=== PATIENT | female | born 1985 | race Caucasian/White ===

== ENCOUNTER 2018-08-10 20:04 | Emergency (ER) | payer SELFPAY ==
[2018-08-10] MEDS ORDERED: ONDANSETRON INJ 4 MG/2 ML VIAL IV ONE (20:37)
[2018-08-10] MEDS ORDERED: KETOROLAC TROMETHAMINE INJ 30 MG/ML VIAL IV ONE (20:37)
[2018-08-10] MEDS ORDERED: SODIUM CHLORIDE 0.9% 1000ML 1,000 ML IVS ONE (20:37)
--- NOTE | 2018-08-10 20:40 | ED.PDOC ---
History of Present Illness - General Chief Complaint: Abdominal Pain Stated Complaint: throwing up and abd pain Time Seen by Provider: 08/10/18 20:37 Information Source: patient Exam Limitations: no limitations - History of Present Illness Initial Comments: patient comes in today with 1 day history of nausea, vomiting, abdominal pain and epigastric area. The pain is cramping, severe, and worse with any attempt to take down by mouth intake. Patient's last by mouth intake that was successful was yesterday. She's had no diarrhea and had normal bowel movement without blood or mucus this morning. She's also had some fever, chills, cough, congestion, and body aches for the last 24 hours as well. Patient otherwise has no past medical history and takes no medications. Her past surgical history significant only for a tubal ligation. Patient has no known drug allergies. Patient does not smoke, drink, or take illicit substances. She has not received her flu shot this year Abdominal Pain Onset Location: epigastric Pain Radiation: no radiation Quality: severe Timing/Duration: 24 hours Improving Factors: nothing Worsening Factors: eating Associated Symptoms: fever/chills, nausea/vomiting Review of Systems - Review of Systems Constitutional: States: chills, fever EENTM: States: nose congestion. Denies: eye pain, ear pain, throat pain Respiratory: States: cough. Denies: short of breath, wheezing Cardiology: States: no symptoms reported Gastrointestinal/Abdominal: States: abdominal pain, nausea, vomiting. Denies: constipation, diarrhea Genitourinary: States: no symptoms reported. Denies: discharge, dysuria, hematuria Past Medical History (General) - Patient Medical History Hx Seizures: No Hx Stroke: No Hx Dementia: No Hx Asthma: No Hx of COPD: No Hx Cardiac Disorders: No Hx Congestive Heart Failure: No Hx Pacemaker: No Hx Hypertension: No Hx Thyroid Disease: No Hx Diabetes: No Hx Gastroesophageal Reflux: No Hx Renal Disease: No Hx Cancer: No Hx of HIV: No Hx Hepatitis C: No Hx MRSA: No - Vaccination History Hx Tetanus, Diphtheria Vaccination: Yes Hx Influenza Vaccination: No Hx Pneumococcal Vaccination: No Immunizations Up to Date: No - Social History Hx Tobacco Use: No Hx Alcohol Use: No Hx Substance Use: No Hx Substance Use Treatment: No Hx Depression: No Feels Threatened In Home Enviroment: No Feels Threatened In a Relationship: No Hx Physical Abuse: No Hx Emotional Abuse: No Hx Suspected Abuse: No - Activities of Daily Living Hospice Agency (if applicable):: None - Female History Patient is a Female of Child Bearing Age (10 -59 yrs old): Yes - tubal in 2007 Patient : No Family Medical History - Family History Maternal Family History: Unknown Physical Exam - Physical Exam General Appearance: Comfortable, No apparent distress, Ill Appearing Eyes, Ears, Nose, Throat Exam: PERRL/EOMI, normal ENT inspection, TMs normal, pharynx normal Neck: non-tender, full range of motion, supple, normal inspection Respiratory: chest non-tender, lungs clear, normal breath sounds, no respiratory distress Cardiovascular/Chest: normal peripheral pulses, regular rate, rhythm, no edema, no gallop, no murmur Peripheral Pulses: No deficit Gastrointestinal/Abdominal: normal bowel sounds, soft, tenderness - TTP at epigastrum with no rebound or guarding Neurologic: alert, oriented x 3 Progress - Progress Progress: 08/10/18 22:29 patient feels much better and has had no more emesis since arrival. Patient has no complaints. slow return to normal diet discussed and fluid hydration - Results/Orders Results/Orders: Laboratory Results WBC 7.6 K/mm3 (4.8-10.8) 08/10/18 21:15 RBC 4.95 M/mm3 (4.20-5.40) 08/10/18 21:15 Hgb 14.5 gm/dL (12.0-16.0) 08/10/18 21:15 Hct 43.1 % (36.0-47.0) 08/10/18 21:15 MCV 87.0 fl (81.0-99.0) 08/10/18 21:15 MCH 29.3 pg (27.0-31.0) 08/10/18 21:15 MCHC 33.6 g/dL (33.0-37.0) 08/10/18 21:15 RDW 13.0 % (11.5-14.5) 08/10/18 21:15 Plt Count 294 K/mm3 (130-400) 08/10/18 21:15 MPV 7.8 fl (7.40-10.4) 08/10/18 21:15 Absolute Neuts (auto) 5.00 K/uL (1.8-6.8) 08/10/18 21:15 Absolute Lymphs (auto) 1.90 K/uL (1.0-3.4) 08/10/18 21:15 Absolute Monos (auto) 0.60 K/uL (0.2-0.8) 08/10/18 21:15 Absolute Eos (auto) 0.10 K/uL (0.0-0.4) 08/10/18 21:15 Absolute Basos (auto) 0.00 K/uL (0.0-0.1) 08/10/18 21:15 Neutrophils % 65.7 % (42.0-78.0) 08/10/18 21:15 Lymphocytes % 24.8 % (20.0-50.0) 08/10/18 21:15 Monocytes % 7.2 % (2.0-9.0) 08/10/18 21:15 Eosinophils % 1.9 % (1.0-5.0) 08/10/18 21:15 Basophils % 0.4 % (0.0-2.0) 08/10/18 21:15 Sodium 136 mmol/L (135-145) 08/10/18 21:15 Potassium 3.8 mmol/L (3.6-5.0) 08/10/18 21:15 Chloride 103 mmol/L (101-111) 08/10/18 21:15 Carbon Dioxide 24 mmol/L (21-31) 08/10/18 21:15 Anion Gap 12.8 (12-18) 08/10/18 21:15 BUN 17 mg/dL (7-18) 08/10/18 21:15 Creatinine 0.52 mg/dL (0.6-1.3) L 08/10/18 21:15 BUN/Creatinine Ratio 32.7 (10-20) H 08/10/18 21:15 Random Glucose 99 mg/dL (70-105) 08/10/18 21:15 Serum Osmolality 273.5 mOsm/L (275-295) L 08/10/18 21:15 Calcium 9.5 mg/dL (8.4-10.2) 08/10/18 21:15 Total Bilirubin 0.8 mg/dL (0.2-1.0) 08/10/18 21:15 AST 22 IU/L (10-42) 08/10/18 21:15 ALT 20 IU/L (10-60) 08/10/18 21:15 Alkaline Phosphatase 45 IU/L (42-121) 08/10/18 21:15 Serum Total Protein 7.4 gm/dL (6.4-8.2) 08/10/18 21:15 Albumin 4.6 g/dl (3.2-5.5) 08/10/18 21:15 Globulin 2.8 gm/dL (2.3-3.5) 08/10/18 21:15 Albumin/Globulin Ratio 1.6 (1.1-1.9) 08/10/18 21:15 Amylase 58 U/L (28-100) 08/10/18 21:15 Lipase 23 U/L (22-51) 08/10/18 21:15 Urine Color Yellow (Yellow) 08/10/18 20:42 Urine Appearance Clear (Clear) 08/10/18 20:42 Urine pH 6.5 (4.5-7.8) 08/10/18 20:42 Ur Specific [place] 1.025 (1.005-1.030) 08/10/18 20:42 Urine Protein Negative mg/dL 08/10/18 20:42 Urine Glucose (UA) Negative mg/dL (Negative) 08/10/18 20:42 Urine Ketones 80 mg/dL (NEGATIVE) H 08/10/18 20:42 Urine Blood Trace-intact (Negative) H 08/10/18 20:42 Urine Nitrite Negative 08/10/18 20:42 Urine Bilirubin Negative (NEGATIVE) 08/10/18 20:42 Urine Urobilinogen 0.2 mg/dL (0.2-1.0) 08/10/18 20:42 Ur Leukocyte Esterase Negative (Negative) 08/10/18 20:42 Urine RBC 0 /hpf 08/10/18 20:42 Urine WBC 1-3 /hpf 08/10/18 20:42 Ur Epithelial Cells 3-5 /hpf 08/10/18 20:42 Urine Bacteria 1+ 08/10/18 20:42 Urine Mucus Moderate 08/10/18 20:42 Urine HCG, Qual Negative 08/10/18 20:42 Departure - Departure Clinical Impression: Gastroenteritis Disposition: Discharge to Home or Self Care Condition: Good Departure Forms: ED Discharge - Pt. Copy, Patient Portal Self Enrollment Instructions: DI for Abdominal Pain-Adult Diet: bland diet Additional Instructions: slow return to normal diet. Increase fluids. Return to the emergency room for intractable emesis or return of abdominal pain.
[2018-08-11 03:13] VITALS: BP 110/55; TEMP 98.1; O2SAT 94
== END 2018-08-10 22:55 | disposition home or self-care (01) ==
LOC: ER 20:04
DX: K52.9 Noninfective gastroenteritis and colitis, unspecified (principal)
CPT/HCPCS: 36415; 80053; 81001; 81025; 82150; 83690; 85025; 87502; J1885; J2405; J7030

== ENCOUNTER 2018-08-11 19:36 | Emergency (ER) | payer OTHER ==
--- NOTE | 2018-08-11 20:18 | ED.PDOC ---
History of Present Illness - General Chief Complaint: GI Problem Stated Complaint: vomiting MEDICAL RECORDS RECEPTIONIST Time Seen by Provider: 08/11/18 20:06 Source: patient Exam Limitations: no limitations - History of Present Illness Initial Comments: Laura White 33 y/o female came ER still with nausea vomiting since yesterday night.Denies diarrhea,ill contact travel outside [place].Seen ER yesterday given IVF hydration had lab test which were all WNL.Denies headache ,dizziness but with left sided abdominal cramps.Had Hcg-negative. Timing/Duration: 24 hours, constant Severity: moderate Improving Factors: nothing Worsening Factors: eating Associated Symptoms: nausea/vomiting Allergies/Adverse Reactions: Allergies NO KNOWN ALLERGY Allergy (Verified 08/11/18 20:24) Home Medications: Ambulatory Orders Ondansetron [Zofran Odt] 4 mg PO Q8HRS PRN #10 tab 08/11/18 Ondansetron [Zofran Odt] 4 mg PO Q8HRS PRN #10 tab 08/11/18 Review of Systems - Review of Systems Constitutional: States: no symptoms reported EENTM: States: no symptoms reported Respiratory: States: no symptoms reported Cardiology: States: no symptoms reported Gastrointestinal/Abdominal: States: see HPI Genitourinary: States: no symptoms reported Musculoskeletal: States: no symptoms reported Skin: States: no symptoms reported Past Medical History (General) - Patient Medical History Hx Seizures: No Hx Stroke: No Hx Dementia: No Hx Asthma: No Hx of COPD: No Hx Cardiac Disorders: No Hx Congestive Heart Failure: No Hx Pacemaker: No Hx Hypertension: No Hx Thyroid Disease: No Hx Diabetes: No Hx Gastroesophageal Reflux: No Hx Renal Disease: No Hx Cancer: No Hx of HIV: No Hx Hepatitis C: No Hx MRSA: No Surgical History: other - btl - Vaccination History Hx Tetanus, Diphtheria Vaccination: Yes Hx Influenza Vaccination: No Hx Pneumococcal Vaccination: No - Social History Hx Tobacco Use: No Hx Alcohol Use: No Hx Substance Use: No Hx Substance Use Treatment: No Hx Depression: No Hx Physical Abuse: No Hx Emotional Abuse: No Hx Suspected Abuse: No - Female History Hx Last Menstrual Period: 08/03/18 Patient : No Family Medical History - Family History Maternal Family History: Unknown Physical Exam - Physical Exam General Appearance: Alert, Anxious, Comfortable, No apparent distress Eye Exam: bilateral normal Ears, Nose, Throat: hearing grossly normal, normal ENT inspection, normal pharynx Neck: non-tender, supple Respiratory: chest non-tender, lungs clear, normal breath sounds Cardiovascular/Chest: normal peripheral pulses, regular rate, rhythm, no murmur Peripheral Pulses: radial,right: 2+, radial,left: 2+ Gastrointestinal/Abdominal: normal bowel sounds, non tender, soft, no organomegaly Extremity: normal range of motion, normal inspection, no pedal edema, no calf tenderness Neurologic: alert, oriented x 3 Skin Exam: normal color, warm/dry Lymphatic: no adenopathy Progress - Progress Progress: 08/11/18 23:34 Vital Signs - 24 hr 08/11/18 19:45 Temperature 99.5 F Pulse Rate [ 98 H monitor] Respiratory 20 Rate Blood Pressure 116/67 [Left Arm] O2 Sat by Pulse 97 Oximetry - Results/Orders Results/Orders: 08/11/18 20:21 IV Care:Saline Lock per Protoc QSHIFT 08/11/18 20:36 Hold Metformin x 48Hrs [id number] 08/11/18 20:45 CARDIAC PANEL,ER Stat HEPATIC FUNCTION PANEL Stat 08/11/18 22:17 Flu A+B (PCR) [INFLUENZA A & B BY PCR] Stat Laboratory Results - last 24 hr 08/11/18 08/11/18 08/11/18 18:15 20:45 20:45 WBC 9.7 RBC 4.82 Hgb 14.1 Hct 42.1 MCV 87.4 MCH 29.2 MCHC 33.4 RDW 12.6 Plt Count 306 MPV 7.8 Absolute Neuts (auto) 7.40 H Absolute Lymphs (auto) 1.70 Absolute Monos (auto) 0.50 Absolute Eos (auto) 0.10 Absolute Basos (auto) 0.00 Neutrophils % 76.5 Lymphocytes % 17.1 L Monocytes % 5.3 Eosinophils % 0.9 L Basophils % 0.2 PT 9.8 INR 0.98 PTT (SP) 27.0 Sodium 137 Potassium 4.3 Chloride 106 Carbon Dioxide 20 L Anion Gap 15.3 BUN 16 Creatinine 0.56 L BUN/Creatinine Ratio 28.6 H Random Glucose 95 Serum Osmolality 274.8 L Calcium 9.2 Magnesium 2.1 Total Bilirubin 0.9 Direct Bilirubin 0.2 Indirect Bilirubin 0.7 AST 24 ALT 20 Alkaline Phosphatase 42 Creatine Kinase 51 CK-MB (CK-2) 0.7 Troponin I < 0.02 Serum Total Protein 7.4 Albumin 4.5 Urine Color Yellow Urine Appearance Sl cloudy Urine pH 5.5 Ur Specific [place] >= 1.030 Urine Protein Negative Urine Glucose (UA) Negative Urine Ketones >=160 Urine Blood Trace-lysed H Urine Nitrite Negative Urine Bilirubin Small H Urine Urobilinogen 0.2 Ur Leukocyte Esterase Trace H Urine RBC 0 Urine WBC 3-5 H Ur Epithelial Cells 20-30 Urine Bacteria 3+ H Urine Opiates Screen Negative Urine Barbiturates Negative Ur Phencyclidine Scrn Negative U Amphetamin/Meth Scrn Negative U Benzodiazepines Scrn Negative U Cocaine Metab Screen Negative U Cannabinoids Screen Negative No nausea vomiting since arrival at er Discuss all test result with patient and Departure - Departure Clinical Impression: Nausea & vomiting Qualifiers: Vomiting type: unspecified Vomiting Intractability: non-intractable Qualified Code(s): R11.2 - Nausea with vomiting, unspecified Time of Disposition: 23:36 Disposition: Discharge to Home or Self Care Condition: Fair Departure Forms: ED Discharge - Pt. Copy, Patient Portal Self Enrollment Diet: other - clear liquids in am then to advance diet as tolerated Prescriptions: Ondansetron [Zofran Odt] 4 mg PO Q8HRS PRN #10 tab PRN Reason: Nausea Ondansetron [Zofran Odt] 4 mg PO Q8HRS PRN #10 tab PRN Reason: Nausea Home Medications: Ambulatory Orders Ondansetron [Zofran Odt] 4 mg PO Q8HRS PRN #10 tab 08/11/18 Ondansetron [Zofran Odt] 4 mg PO Q8HRS PRN #10 tab 08/11/18
[2018-08-11] MEDS ORDERED: PROCHLORPERAZINE INJ 10 MG/2 ML VIAL IV ONE (20:21)
[2018-08-11] MEDS ORDERED: LACTATED RINGERS 1,000 ML IVS ONE (20:21)
[2018-08-11 20:24] VITALS: TEMP 99.5
--- NOTE | 2018-08-11 21:31 | CT ---
EXAM: Abdomen/Pelvis w/Contrast CLINICAL INDICATION: Abdominal pain. COMPARISON: There is no previous study for comparison. TECHNIQUE: The CT scan was done using contiguous axial 5 mm postcontrast sections through the abdomen and pelvis including IV contrast. This exam was performed according to our departmental dose-optimization program, which includes automated exposure control, adjustment of the mA and/or kV according to patient size and/or use of iterative reconstruction technique. FINDINGS: The visualized portions of the lung bases are clear. The liver, gallbladder, kidneys, adrenal glands, spleen, and pancreas have a normal CT appearance. The aorta is normal in caliber. The appendix is normal. There are no dilated loops of small bowel. There is no free air, free fluid, or abscess. IMPRESSION: No evidence of an acute intra-abdominal process. Electronically signed by: Tanner Rizvi MD 08/11/2018 9:29 PM [employer]
[2018-08-11] MEDS ORDERED: SODIUM CHLORIDE 0.9% 1000ML 1,000 ML IVS ONE (22:01)
[2018-08-11] MEDS ORDERED: DEXAMETHASONE INJ 4 MG/ML VIAL IV ONE (22:03)
[2018-08-11] MEDS ORDERED: PANTOPRAZOLE INJECTION 80 MG in SODIUM CHLORIDE 0.9% 100ML 80 ML IVPB ONE (22:03)
[2018-08-11] MEDS ORDERED: PANTOPRAZOLE SODIUM IV 40 MG VIAL ONE (22:23)
[2018-08-11] MEDS ORDERED: SODIUM CHLORIDE 0.9% 100ML 100 ML IVPB ONE (22:24)
[2018-08-11] MEDS ORDERED: ONDANSETRON ODT (ER DISP) 8 MG TAB PO ONE (23:37)
[2018-08-12] MEDS ORDERED: ONDANSETRON ODT 8 MG TAB SL ONE (00:04)
--- NOTE | 2018-08-12 00:46 | CT ---
EXAM: Head CLINICAL INDICATION: 33-year-old female with dizziness. COMPARISON: None. TECHNIQUE: CT brain without contrast. This exam was performed according to our departmental dose optimization program which includes use of automated exposure control, adjustment of the mA and/or kV according to patient size and/or use of iterative reconstruction technique. FINDINGS: Examination findings are limited by motion streak artifact. The ventricles, sulci, and cisterns are within normal limits. The alexander-white matter differentiation is preserved. There is no mass effect, midline shift, intra- or extra-axial fluid collection/acute hemorrhage. The osseous structures are unremarkable. The paranasal sinuses and mastoid air cells are clear. IMPRESSION: 1. No acute intracranial abnormalities. 2. Technically limited examination secondary to motion streak artifact limiting evaluation for trace extra-axial hemorrhage. Repeat imaging may be considered when the patient is clinically able. Electronically signed by: Heide Cervantes MD 08/12/2018 12:44 AM [employer]NAGER [employer]
[2018-08-12 01:28] VITALS: BP 111/59; O2SAT 99
== END 2018-08-12 01:15 | disposition home or self-care (01) ==
LOC: ER 19:36
DX: R11.2 Nausea with vomiting, unspecified (principal)
CPT/HCPCS: 70450; 74177; 80048; 80076; 80307; 81001; 82550; 82553; 84484; 85025; 85610; 85730; 87502; J0780; J1100; J2060; J7030; J7050; J7120